=== PATIENT | female | born 1945 | race Caucasian/White ===

== ENCOUNTER 2017-05-03 09:23 | Day surgery (SDC) | payer MEDICARE ==
[2017-04-30 12:37] VITALS: BP 149/84
[2017-04-30 12:48] LABS: BASOPHILS # (AUTO) 0.04 x10^3/uL (0-0.1); BASOPHILS % (AUTO) 1 % (0-1); EOSINOPHILS # (AUTO) 0.05 x10^3/uL (0-0.4); EOSINOPHILS % (AUTO) 1 % (1-7); LYMPHOCYTES # (AUTO) 2.69 x10^3/uL (1-3.4); LYMPHOCYTES % (AUTO) 36 % (22-44); MD NO; MEAN CORPUSCULAR HEMOGLOBIN 32.4 pg (27.0-34.8); MEAN CORPUSCULAR HGB CONC 33.4 g/dL (32.4-35.8); MEAN PLATELET VOLUME 9.1 fL (7.4-10.4); MONOCYTES # (AUTO) 0.43 x10^3/uL (0.2-0.8); MONOCYTES % (AUTO) 6 % (2-9); NEUTROPHILS # (AUTO) 4.35 x10^3/uL (1.8-6.8); NEUTROPHILS % (AUTO) 58 % (42-75); PLATELET COUNT 314 x10^3/uL (130-400); RED BLOOD COUNT 4.06 x10^6/uL (3.82-5.3); RED CELL DISTRIBUTION WIDTH 13.8 % (9.6-15.2)
[2017-04-30 12:58] LABS: INTERNATIONAL NORMALIZED RATIO 0.94 (0.93-1.1); PROTHROMBIN TIME 9.8 Seconds (9.6-11.5)
[2017-04-30 13:01] LABS: ALBUMIN 3.8 g/dL (3.4-5.0); ANION GAP 8 mmol/L (5-15); CALCIUM 9.3 mg/dL (8.5-10.1); CHLORIDE 110 mmol/L (98-107)
[2017-04-30 13:05] LABS: ALANINE AMINOTRANSFERASE 21 U/L (12-78); ALKALINE PHOSPHATASE 63 U/L (45-117); CREATININE 0.87 mg/dL (0.55-1.02); TOTAL PROTEIN 7.7 g/dL (6.4-8.2)
[~2017-05-03] VITALS: Ht 170.2 cm; Wt 74.0 kg
[~2017-05-03 09:23] MED LIST: AMOX-291 PO; ASPI-496 PO; CHOL200024 PO; MULT-516 PO; OMEG1CAP23 PO; SIMV20TA3 PO
[2017-05-03] MEDS ORDERED: LACTATED RINGERS 1,000 ML IV SCH (10:09)
[2017-05-03] MEDS ORDERED: LIDOCAINE 1%, 2ML SQ PRN (10:30)
[2017-05-03] MEDS ORDERED: INDOCYANINE GREEN 25 MG VIAL ONE (10:39)
[2017-05-03] MEDS ORDERED: BUPIVACAINE/PF 0.25% ONE (10:39)
[2017-05-03] MEDS ORDERED: EPINEPHRINE 1 MG/ML, 1ML ONE (10:40)
[2017-05-03] MEDS ORDERED: HEPARIN 1,000 UNITS/ML, 10ML ONE (10:40)
[2017-05-03] MEDS ORDERED: NORE5TAB PO (10:47)
[2017-05-03] MEDS ORDERED: FENTANYL PF 250 MCG/5ML ONE (11:03)
[2017-05-03] MEDS ORDERED: KETOROLAC 30 MG/1 ML ONE (11:23)
[2017-05-03] MEDS ORDERED: CEFAZOLIN 1,000 MG ONE (13:08)
[2017-05-03] MEDS ORDERED: SUCCINYLCHOLINE 20 MG/ML, 10ML ONE (13:08)
[2017-05-03] MEDS ORDERED: MIDAZOLAM 1 MG/ML, 2ML ONE (13:08)
[2017-05-03] MEDS ORDERED: ROCURONIUM 10 MG/ML,10ML ONE (13:08)
[2017-05-03] MEDS ORDERED: NEOSTIGMINE 1 MG/ML, 10ML ONE (13:08)
[2017-05-03] MEDS ORDERED: DEXAMETHASONE 4 MG/ML, 1ML ONE (13:08)
[2017-05-03] MEDS ORDERED: GLYCOPYRROLATE 0.2MG/1ML, 5ML ONE (13:08)
[2017-05-03] MEDS ORDERED: ONDANSETRON 2MG/ML, 2ML ONE (13:08)
[2017-05-03] MEDS ORDERED: PROPOFOL 10 MG/ML, 20ML ONE (13:08)
[2017-05-03] MEDS ORDERED: HYDROmorphone 1 MG/ML, 1ML ONE (13:12)
[2017-05-03] MEDS ORDERED: ALBUTEROL SULFATE 2.5 MG/3 ML NPPB PRN (13:30)
[2017-05-03] MEDS ORDERED: LORazepam 2 MG/ML, 1ML IVPush PRN (13:30)
[2017-05-03] MEDS ORDERED: MEPERIDINE/PF 25MG/0.5ML IVPush PRN (13:30)
[2017-05-03] MEDS ORDERED: OXYcodone 5 MG/5 ML ORAL.SOL UDC PO PRN (13:30)
[2017-05-03] MEDS ORDERED: hydrALAzine 20 MG/ML, 1ML IV PRN (13:30)
[2017-05-03] MEDS ORDERED: ACETAMINOPHEN 325 MG TABLET PO PRN (13:30)
[2017-05-03] MEDS ORDERED: LABETALOL 5MG/ML, 20ML IV PRN (13:30)
[2017-05-03] MEDS ORDERED: PROMETHAZINE 25 MG/ML, 1ML IV PRN (13:30)
[2017-05-03] MEDS ORDERED: ACETAMINOPHEN 650 MG/20.3 ML UDC ONE (13:31)
[2017-05-03] MEDS ORDERED: FENTANYL PF 100 MCG/2ML ONE (13:31)
[2017-05-03] MEDS ORDERED: OXYcodone 5 MG/5 ML ORAL.SOL UDC ONE (13:32)
[2017-05-03] MEDS: FENTANYL PF 100 MCG/2ML IV PRN ×2 (13:37→13:45)
[2017-05-03] MEDS ORDERED: HYDROmorphone 2 MG/ML, 1ML ONE (13:59)
[2017-05-03] MEDS: HYDROmorphone 1 MG/ML, 1ML IV PRN ×3 (14:00→14:20)
[2017-05-03 19:35] VITALS: BP 164/81
[2017-05-03 22:21] VITALS: BP 153/73
== END 2017-05-03 23:43 | disposition home or self-care (01) ==
LOC: OUT 09:23 → 3NW 19:19 → OUT 23:43
PROVIDERS: ATTEND Specialist
DX: C54.1 Malignant neoplasm of endometrium (principal); I10 Essential (primary) hypertension; E78.5 Hyperlipidemia, unspecified; E66.9 Obesity, unspecified; Z68.25 Body mass index [BMI] 25.0-25.9, adult; Z72.89 Other problems related to lifestyle
CPT/HCPCS: 36415; 58571; 71046; 80053; 85025; 85610; 85730; 86304; 86850; 86900; 86923; 88305; 88307; 93005; J0171; J0690; J1100; J1170; J1885; J2250; J2405; J2704; J2710; J3010; J3490; J7120; J1644; J0330

== ENCOUNTER → 2017-06-18 | Outpatient (CLI) | payer MEDICARE ==
[~2017-06-18] MED LIST changes: +NORE5TAB PO
== END | disposition home or self-care (01) ==
LOC: ROC 13:00
PROVIDERS: ATTEND Radiology Radiation Oncology
DX: C54.1 Malignant neoplasm of endometrium (principal)
CPT/HCPCS: G0463

== ENCOUNTER → 2017-06-18 | Outpatient (CLI) | payer MEDICARE ==
[~2017-06-18] MED LIST changes: +OMNIPAQUE 350 MG/ML, 100ML BOTTLE ONE
== END | disposition home or self-care (01) ==
LOC: CFH 10:48
PROVIDERS: ATTEND Specialist
DX: C54.1 Malignant neoplasm of endometrium (principal)
CPT/HCPCS: 74177; Q9967

== ENCOUNTER → 2017-06-25 | Outpatient (CLI) | payer MEDICARE ==
[~2017-06-25] MED LIST changes: -OMNIPAQUE 350 MG/ML, 100ML BOTTLE ONE
== END | disposition home or self-care (01) ==
LOC: ROC 07:32
PROVIDERS: ATTEND Radiology Radiation Oncology
DX: C54.1 Malignant neoplasm of endometrium (principal)
CPT/HCPCS: G0463

== ENCOUNTER → 2017-12-02 | Outpatient (CLI) | payer MEDICARE | END | disposition home or self-care (01) | LOC: ROC 07:29 | PROVIDERS: ATTEND Radiology Radiation Oncology | DX: C54.1 Malignant neoplasm of endometrium (principal) | CPT/HCPCS: G0463 ==

== ENCOUNTER 2018-11-24 09:26 | Outpatient (CLI) | payer MEDICARE | END 2018-11-24 23:59 | disposition home or self-care (01) | LOC: ROC 09:26 | PROVIDERS: ATTEND Radiology Radiation Oncology | DX: Z08 Encounter for follow-up examination after completed treatment for malignant neoplasm (principal); Z85.42 Personal history of malignant neoplasm of other parts of uterus | CPT/HCPCS: G0463 ==